=== PATIENT | female | born 1960 | race Caucasian/White ===

== ENCOUNTER 2017-10-11 07:54 | Emergency (ER) | payer BC ==
--- NOTE | 2017-10-11 08:06 | Emergency Department Record ---
History of Present Illness - General Chief Complaint: Ankle/Foot Injury Stated Complaint: TWISTED ANKLE Time Seen by Provider: 10/11/17 07:59 Source: Patient Mode of Arrival: Ambulatory Limitations: No limitations - History of Present Illness Initial Comments: 57 yo female presents this morning after twisting her ankle walking. She has no other injuries. She states she hasmild medial and lateral ankle pain. No foot pain. No knee pain. No other recent changes in her health. She has aortic stenosis. She is asymptomatic followed by Claudia NEWELL Complaint: Ankle injury -: Minutes(s) Injury: Ankle: Right Type of Injury: Eversion Place: Home Severity: Moderate Improves With: Immobilization Worsens With: Palpation, Weight bearing Context: Walking - Related Data Home Medications Medication Instructions Recorded Confirmed Last Taken Simvastatin [Zocor] 20 mg PO DAILY 10/11/17 10/11/17 Unknown Allergies Allergy/AdvReac Type Severity Reaction Status Date / Time No Known Drug Allergies Allergy Verified 10/11/17 08:02 Review of Systems Constitutional: Denies: Chills, Fever Eyes: Denies: Vision change ENT: Denies: Congestion, Throat pain Respiratory: Denies: Cough, Dyspnea Cardiovascular: Denies: Chest pain, Palpitations, Syncope Endocrine: Denies: Fatigue Gastrointestinal: Denies: Abdominal pain, Diarrhea, Nausea, Vomiting Genitourinary: Denies: Dysuria Musculoskeletal: Reports: Joint swelling. Denies: Arthralgia, Neck pain Skin: Denies: Bruising, Change in color, Rash Neurological: Denies: Abnormal gait, Headache, Numbness, Tingling, Weakness Psychiatric: Denies: Anxiety Hematological/Lymphatic: Denies: Blood Clots, Easy bleeding, Easy bruising, Swollen glands Past Medical History - SOCIAL HISTORY Smoking Status: Former smoker Alcohol Use Comment: 4-5 drinks/week - RESPIRATORY Hx Respiratory Disorders: No - CARDIOVASCULAR Hx Cardio Disorders: Yes Comment:: high cholesterol - NEURO Hx Neuro Disorders: Yes Hx of Migraines: Yes - GI Hx GI Disorders: No - Hx Genitourinary Disorders: No - ENDOCRINE Hx Endocrine Disorders: No - MUSCULOSKELETAL Hx Musculoskeletal Disorders: No - PSYCH Hx Psych Problems: No - HEMATOLOGY/ONCOLOGY Hx Hematology/Oncology Disorders: Yes Hx Cancer: Yes (cervical) Hx Chemotherapy: No Hx Radiation Therapy: No Physical Exam - General General Appearance: Alert, Oriented x3, Cooperative, No acute distress Limitations: No limitations - Head Head exam: Normal inspection - Eye Eye exam: Normal appearance - ENT ENT exam: Normal exam Ear exam: Normal external inspection Nasal Exam: Normal inspection Mouth exam: Normal external inspection - Neck Neck exam: Normal inspection - Respiratory Respiratory exam: Normal lung sounds bilaterally. negative: Respiratory distress - Cardiovascular Cardiovascular Exam: Regular rate, Normal rhythm, Normal heart sounds, Systolic murmur Peripheral Pulses: 2+: Radial (R), Radial (L), Dorsalis Pedis (R) - Extremities Extremities exam: Normal inspection, Full ROM, Normal capillary refill, Tenderness Image of Feet: 1 - normal inspection, mild lateral tenderness, no foot tenderness, no 5th MT tenderness, no knee tenderness, intact skin - Back Back exam: Reports: Full ROM - Neurological Neurological exam: Alert, Normal gait, Oriented X3 - Psychiatric Psychiatric exam: Normal affect, Normal mood - Skin Skin exam: Dry, Intact, Normal color, Warm Course - Reevaluation(s) Reevaluation #1: 10/11/17 08:35 The XR was read as negative Airsplint provided as well as crutches Disposition Disposition: Discharge Clinical Impression: Ankle sprain Qualifiers: Encounter type: initial encounter Involved ligament of ankle: unspecified ligament Laterality: right Qualified Code(s): S93.401A - Sprain of unspecified ligament of right ankle, initial encounter Disposition: Home, Self-Care Condition: (1) Good Instructions: Ankle Sprain (ED) Additional Instructions: Ice and elevate the ankle Follow up with your doctor in one week if any persistent pain Use the splint and crutches until pain free Forms: Patient Portal Access Time of Disposition: 08:37 Quality - Quality Measures Quality Measures: N/A - Blood Pressure Screening Does Patient Have Any of the Following: No Blood Pressure Classification: Hypertensive Reading Systolic Measurement: 159 Diastolic Measurement: 91 Screening for High Blood Pressure: < Pre-Hypertensive BP, F/U Documented > [ [id number]] Pre-Hypertensive Follow-up Interventions: Referral to alternative/primary care provider.
--- NOTE | 2017-10-11 12:46 | RADIOLOGY REPORT ---
EXAM: RIGHT ANKLE HISTORY: TWISTED RIGHT ANKLE THIS MORNING WITH PAIN LATERALLY. TECHNIQUE: Three views of the right ankle were obtained. Comparison: No prior right ankle series with which to compare. Encounter: Initial. FINDINGS: There is mild spurring at the ankle. There is a plantar calcaneal spur as well. No definite fracture of the right ankle identified and no dislocation seen. IMPRESSION: 1. SOME MILD SPURRING AT THE ANKLE. 2. NO FRACTURE IDENTIFIED. JOB NUMBER: [id number] MTDD
== END 2017-10-11 08:54 | disposition home or self-care (01) ==
LOC: ER 07:54
DX: S93.401A Sprain of unspecified ligament of right ankle, initial encounter (principal); X50.1XXA Overexertion from prolonged static or awkward postures, initial encounter; Y93.01 Activity, walking, marching and hiking; Y92.009 Unspecified place in unspecified non-institutional (private) residence as the place of occurrence of the external cause; Z87.891 Personal history of nicotine dependence
CPT/HCPCS: 99283

== ENCOUNTER 2018-04-10 13:10 | Day surgery (SDC) | payer BC ==
[2018-04-10] MEDS ORDERED: MIDAZOLAM HCL 2MG/2ML VIAL IV ONE (13:11)
[2018-04-10] MEDS ORDERED: PROPOFOL 10 MG/ML VIAL IV ONE (13:11)
[2018-04-10] MEDS ORDERED: LIDOCAINE 2% MDV (20MG/ML) 20ML VIAL IV ONE (13:11)
--- NOTE | 2018-04-11 12:50 | Operative Note ---
DATE OF SURGERY: 04/10/2018 OPERATION: COLONOSCOPY to the cecum. INDICATION: Colorectal cancer screening. ANESTHESIA: Intravenous sedation was administered by the department of anesthesiology and included Diprivan titrated to effect. PROCEDURE: Following informed consent from this alert individual including a discussion of the risks and benefits of the procedure and an opportunity for the patient to ask questions, the patient was in the left lateral decubitus position. A digital rectal examination was performed. No abnormalities were noted. Following this, the Olympus [id number] video colonoscope was inserted into the rectum without resistance. The rectal mucosa had a normal appearance with normal folds and distensibility. The colonoscope was advanced up through the bowel to the level of the cecum without much difficulty. A few scattered diverticula were noted in the sigmoid region. No other mucosal changes were appreciated. The cecum was well defined by noting the appendiceal orifice and ileocecal valve. The colon preparation was good. From the base of the cecum, the colonoscope was then slowly withdrawn. No additional changes were appreciated upon withdrawal. Again there was diverticulosis noted in the sigmoid colon but no other mucosal changes appreciated throughout. The colonoscope was then withdrawn back into the rectum where retroflexion accomplished following air insufflation failed to demonstrate abnormalities. The instrument was straightened and removed. The patient tolerated the procedure well and was returned to the recovery area in stable condition. IMPRESSION: 1. Sigmoid diverticulosis. 2. Otherwise unremarkable colonoscopy to the cecum. RECOMMENDATIONS: The patient was advised to have recheck colonoscopy in 10 years' time for screening or sooner should problems arise. Followup will be with Dr. Acuna. As always, thank you for allowing me to participate in the care of your patient. CC: MECHELLE ACUNA MD, FACP [facility]
== END 2018-04-10 14:45 | disposition home or self-care (01) ==
LOC: HOP 13:10
PROVIDERS: ATTEND Internal Medicine Gastroenterology
DX: Z12.11 Encounter for screening for malignant neoplasm of colon (principal); K57.30 Diverticulosis of large intestine without perforation or abscess without bleeding; E78.00 Pure hypercholesterolemia, unspecified